=== PATIENT | female | born 1985 | race African-American/Black ===

== ENCOUNTER 2022-06-08 07:19 | Day surgery (SDC) | payer BC ==
[2022-06-06 13:23] VITALS: BMI 37.8
[2022-06-08 09:37] LABS: BHCG - Serum Negative (NEGATIVE); Pregs Control Background? CLEAR/WHITE (CLR/WHITE); Pregs Control Bar Appear? YES (CONTROL BAR)
[2022-06-08] MEDS ORDERED: Ferric Subsulfate (ASTRINGYN) 8 GM VIAL ONE (09:42)
[2022-06-08] MEDS ORDERED: fentaNYL PF 100 MCG/2 ML SYRINGE ONE (09:45)
[2022-06-08] MEDS ORDERED: Midazolam HCl 2 mg/2 ml Vial ONE (09:45)
[2022-06-08] MEDS ORDERED: Lidocaine 1% PF 5 ML VIAL ONE (10:32)
[2022-06-08] MEDS ORDERED: PROPOFOL 200 MG/20 ML VIAL ONE (10:32)
[2022-06-08] MEDS ORDERED: Ondansetron PF 4 MG/2 ML Vial ONE (10:32)
[2022-06-08] MEDS ORDERED: Dexamethasone 20 MG/5 ML VIAL ONE (10:32)
== END 2022-06-08 12:40 | disposition home or self-care (01) ==
LOC: SDC 07:19
PROVIDERS: ATTEND Specialist
PROC: 0CTPXZZ Resection of Tonsils, External Approach (ICD-10-PCS; principal; 2022-06-08)
DX: J35.01 Chronic tonsillitis (principal); I10 Essential (primary) hypertension; J45.909 Unspecified asthma, uncomplicated; E66.9 Obesity, unspecified; Z68.37 Body mass index [BMI] 37.0-37.9, adult; Z79.3 Long term (current) use of hormonal contraceptives; Z79.899 Other long term (current) drug therapy; Z88.1 Allergy status to other antibiotic agents
CPT/HCPCS: 84703; 85014; 88304; J1100; J2250; J2405; J2704